=== PATIENT | female | born 1980 | race African-American/Black ===

== ENCOUNTER 2019-01-12 05:22 | Emergency (ER) | payer BC, OTHER ==
[~2019-01-12] VITALS: Ht 162.6 cm; Wt 79.4 kg
[2019-01-12 05:24] VITALS: BP 116/81
[2019-01-12] MEDS ORDERED: OZEMPIC0.25 MG/0. INJECTION (05:28)
[2019-01-12] MEDS ORDERED: JANUMET XR 50-1 EAC1 PO (05:28)
[2019-01-12] MEDS ORDERED: LEVEMIR FL100 UNIT/2 INJECTION (05:28)
[2019-01-12] MEDS ORDERED: KEFLEX500 M1 PO (06:02)
== END 2019-01-12 06:10 | disposition home or self-care (01) ==
LOC: ER 05:22
DX: L03.115 Cellulitis of right lower limb (principal); L03.031 Cellulitis of right toe; E11.9 Type 2 diabetes mellitus without complications; Z79.4 Long term (current) use of insulin